=== PATIENT | female | born 1970 | race Caucasian/White ===

== ENCOUNTER 2017-08-27 18:00 | Inpatient (IN) | payer MEDICAID ==
[~2017-08-27] VITALS: Ht 157.5 cm; Wt 44.8 kg
--- NOTE | ~2017-08-27 | HEMODYNAMI ---
PATIENT:ANGELY VAZQUEZ MEDICAL RECORD: [id number] : 68 LOCATION:D. D.2107 ADMISSION DATE: 08/27/17 Generatedon:08/28/20179:58 Patient name: ANGELY VAZQUEZ Patient #: [id number] SSN: DO B: 1970 Date of study: 08/28/2017 Page: Of Hemodynamic Procedure Report Patient Data Patient Demographics Procedure consent was obtained First Name: ANGELY Gender: Female Last Name: TAYLOR : 1970 Patient #: [id number] Age: 47 year(s) Race: Additional ID: [id number] Contact details Address: [address] [place] [address] State: [place] City: [place] Zip code: [address] Past Medical History Allergies Allergen Reaction Date Comments Reported Penicillins 08/28/2017 Admission Admission Data Admission Date: 08/27/2017 Admission Time: 18:00 Room #: D.2107 Weight (lbs.): 170 Weight (kg.): 77.11 Procedure Procedure Types Cath Procedure Diagnostic Procedure LHC LHC w/Coronaries Procedure Description Procedure Date Procedure Date: 08/28/2017 Procedure Start Time: 9:44 Procedure End Time: 9:57 Procedure Staff Name Function Ryan Mcleod MD Performing Physician Aysha Bledsoe RN Nurse Clemente Apodaca RT Monitor Maryam eBltrán RT Scrub Procedure Data Cath Procedure Fluoroscopy Diagnostic fluoroscopy Total fluoroscopy Time: 0.9 time: 0.9 min min Diagnostic fluoroscopy Total fluoroscopy dose: dose: 77.99 mGy 77.99 mGy Contrast Material Contrast Material Type Amount (ml) Isovue 300 55 Entry Location Entry Primary Successful Side Size Upsize Upsize Entry Closure Succes sful Closure Location (Fr) 1 (Fr) 2 (Fr) Remarks Device Remarks Femoral Right 5 Fr Exoseal artery Estimated blood loss: 10 ml Diagnostic catheters Device Type Used For End Catheter Placement MULTIPACK JL 4.0 5Fr Procedure catheter MULTIPACK 3DRC 5Fr Procedure catheter MULTIPACK Pigtail 5 Fr Procedure catheter Procedure Medications Medication Administration Route Dosage Oxygen NC 2 l/min Lidocaine 2% added to field 20 Heparin Flush Bag added to field 2 bags (1000units/500ml NS) 0.9% NaCl I.V. 100 ml/hr Versed I.V. 1 mg Fentanyl I.V. 50 mcg Versed I.V. 1 mg Fentanyl I.V. 50 mcg Hemodynamics Rest Heart Rate: 90 (bpm) Pressure Samples Time Site Value (mmHg) Purpose Heart Use Rate(bpm) 9:45 LV 108/16,27 Snapshot 91 9:49 LV 114/-6,18 Snapshot 89 Gradients Valve Time Site Site Mean SEP/DFP Peak To Heart Use 1 2 (mmHg) (sec/min) Peak Rate (mmHg) (bpm) Aortic 9:50 LV AO 90 Snapshots Pre Cath Intra NCS Post Cath Vital Signs Time Heart Resp SPO2 etCO2 NIBP Rhythm Pain Sedation Rate (ipm) (%) (mmHg) (mmHg) Status Level (bpm) 9:10:49 88 22 99 27.6 124/73(92) NSR 0 (11) 10(A) , No pain 9:15:12 91 22 99 32.1 119/72(93) NSR 0 (11) 10(A) , No pain 9:19:31 92 19 99 21.6 119/68(88) NSR 0 (11) 10(A) , No pain 9:23:52 92 16 99 20.9 115/67(82) NSR 0 (11) 10(A) , No pain 9:28:10 89 17 99 23.9 106/69(86) NSR 0 (11) 10(A) , No pain 9:32:30 92 19 99 26.1 108/63(86) NSR 0 (11) 10(A) , No pain 9:36:50 88 17 97 29.9 101/66(74) NSR 0 (11) 10(A) , No pain 9:41:10 90 18 95 22.7 112/61(80) NSR 0 (11) 10(A) , No pain 9:45:32 91 15 97 29.1 110/65(81) NSR 0 (11) 9(A) , No pain 9:49:55 92 17 97 29.8 112/61(75) NSR 0 (11) 9(A) , No pain 9:53:13 91 15 97 19.4 105/61(80) NSR 0 (11) 10(A) , No pain 9:57:25 91 19 97 22.4 107/71(86) NSR 0 (11) 10(A) , No pain Medications Time Medication Route Dose Verified Delivered Reason Notes Effec tiveness by by 9:18:30 Oxygen NC 2 Ryan Buffie used for l/min Albion Bledsoe rotary engraver 9:18:37 Lidocaine 2% added 20ml Ryan Ryan for local to vial [facility] anesthetic field MD PALACIOS 9:18:43 Heparin Flush added 2 Ryan Ryan used for Bag to bags [facility] procedure (1000units/500ml field MD PALACIOS NS) 9:18:54 0.9% NaCl I.V. 100 Ryan Buffie Per ml/hr Albion Bledsoe RN physician 9:41:53 Versed I.V. 1 mg Ryan Buffie for Shani Bledsoe RN sedation 9:42:00 Fentanyl I.V. 50 Ryan Buffie for mcg Albion Bledsoe RN sedation 9:47:45 Versed I.V. 1 mg Ryan Buffie for Albion Bledsoe RN sedation 9:47:51 Fentanyl I.V. 50 Ryan Buffie for mcg [facility] RN sedation Procedure Log Time Note 8:54:59 Clemente Apodaca RT(R) (CV) sent for patient. Start room use. 8:55:00 Time tracking: Regular hours (M-F 7:00 - 5:00) 8:55:05 Plan of Care:Hemodynamics will remain stable., Cardiac rhythm will remain stable., Comfort level will be maintained., Respiratory function will remain adequate., Patient/ family verbilizes understanding of procedure., Procedure tolerated without complication., Recovers from procedure without complications.. 9:09:28 Patient received from PCU to CCL 3 Alert and oriented. Tansferred to table in Supine position. 9:09:29 Warm blankets applied, and claudette hugger turned on for patient comfort. 9:09:29 Correct patient and procedure confirmed by team. 9:09:30 Signed procedure consent form obtained from patient. 9::31 ECG and BP/O2 sat monitors applied to patient. 9:09:31 Vital chart was started 9:09:32 Full Disclosure recording started 9:10:54 Baseline sample Acquired. 9:10:58 Rhythm: sinus rhythm 9:13:12 H&P Date Dictated: 08/27/2017 ER History on chart.. 9:13:14 Pre-procedure instructions explained to patient. 9:13:15 Pre-op teaching completed and patient verbalized understanding. 9:13:18 Family in patients room. 9:13:20 Patient NPO since Midnight. 9:13:26 Patient allergic to Penicillins 9:13:30 Is the patient allergic to Iodine/contrast media? No. 9:13:35 Is patient on blood thinner?Yes 9:13:39 ACC The patient was administered the following blood thiners within the last 24 hours: ACCAspirin, ACCPlavix 9:13:43 Patient diabetic? No. 9:14:14 Patient not . Patient has had tubal. 9:14:26 ----Pre-sedation anethsthesia assessment.---- 9:14:36 Previous problem with sedation/anesthesia? No ? 9:14:38 Snore? Yes 9:14:42 Sleep apnea? No 9:14:44 Deviated septum? No 9:14:45 Opens mouth fully? Yes 9:14:46 Sticks out tongue? Yes 9:14:55 Airway obstruction? No ASTHMA 9:15:03 Dentures? No ? 9:15:16 Pre procedure: right posterior tibial pulse 1+ Palpable, but thready & weak; easily obliterated 9:15:19 Patient pain scale 0/10 ?. 9:15:35 IV patent on arrival in left hand with 0.9% NaCl at KVO. 9:15:44 Right groin area was prepped with chlora-prep and draped in sterile fashion 9:15:53 Modified Antony's test Ulnar > 7 seconds. 9:15:56 Alarms reviewed by R. N. 9:15:57 Sharps counted by scrub and verified by R.N. 9:16:15 Use device set Femoral Dx 9:16:16 ACIST Syringe (13461) opened to sterile field. 9:16:17 Bag Decanter (2002S) opened to sterile field. 9:16:18 Medline Cath Pack ([id number]) opened to sterile field. 9:16:19 DIAGNOSTIC WIRE .035 260cm J wire (323864) opened to sterile field. 9:16:21 ACIST Hand Control (91914) opened to sterile field. 9:16:22 ACIST Manifold (64908) opened to sterile field. 9:16:23 DIAGNOSTIC Multipack 5Fr catheter set (PR0213) opened to sterile field. 9:16:27 SHEATH Prelude 5Fr 0.035 ([id number]-8O-28-035) opened to sterile field. 9:18:30 Oxygen 2 l/min NC was administered by Aysha Bledsoe RN; used for procedure; 9:18:37 Lidocaine 2% 20ml vial added to field was administered by Ryan Mcleod MD; for local anesthetic; 9:18:43 Heparin Flush Bag (1000units/500ml NS) 2 bags added to field was administered by Ryan Mcleod MD; used for procedure; 9:18:54 0.9% NaCl 100 ml/hr I.V. was administered by Aysha Bledsoe RN; Per physician; 9:21:20 Patient Weight : 170 lbs 9:21:28 Zero performed for pressure channel P1 9:27:[address] LANCE 9:40:42 Physician arrived 9:40:42 --------ALL STOP TIME OUT------ 9:40:43 Final Timeout: patient, procedure, and site verified with staff and physician. All members of the team are in agreement. 9:40:45 Right groin site verified by team. 9:40:49 Physical assessment completed. ASA score P 2 - A patient with mild systemic disease as per Ryan Mcleod MD. 9:40:54 Sedation plan: IV Moderate Sedation Medication:Versed, Fentanyl 9:41:53 Versed 1 mg I.V. was administered by Aysha Bledsoe RN; for sedation; 9:42:00 Fentanyl 50 mcg I.V. was administered by Aysha Bledsoe RN; for sedation; 9:44:22 Procedure started. 9:44:26 Local anesthetic to right femoral artery with Lidocaine 2% by Ryan Mcleod MD.INITIAL ACCESS ONLY 9:45:10 A 5 Fr sheath was inserted into the Right Femoral artery 9:45:31 A MULTIPACK JL 4.0 5Fr catheter was advanced over the wire and used for Procedure. 9:46:13 LCA angiography performed. 9:46:40 Catheter removed. 9:47:04 A MULTIPACK 3DRC 5Fr catheter was advanced over the wire and used for Procedure. 9:47:45 Versed 1 mg I.V. was administered by Aysha Bledsoe RN; for sedation; 9:47:50 RCA angiography performed. 9:47:51 Fentanyl 50 mcg I.V. was administered by Aysha Bledsoe RN; for sedation; 9:47:55 Catheter removed. 9:48:12 A MULTIPACK Pigtail 5 Fr catheter was advanced over the wire and used for Procedure. 9:49:24 LV hemodynamics recorded. 9:49:26 LV gram done using VILLALOBOS 9:49:31 EF : 50 % 9:50:01 Catheter removed. 9:50:07 EXOSEAL 5Fr (EX500) opened to sterile field. 9:50:13 Tegaderm 4 x 4 (1626W) opened to sterile field. 9:50:40 Sheath removed intact; hemostasis achieved with Exoseal to the Right Femoral artery. 9:50:43 Procedure ended.(Physican Out) 9:52:00 Fluoroscopy time 00.90 minutes. 9:52:12 Fluoroscopy dose: 77.99 mGy 9:52:12 Flurop Dose total: 77.99 9:52:20 Contrast amount:Isovue 300 55ml. 9:52:22 Sharps counted by scrub and verified by R.N. 9:53:40 Insertion/operative site no bleeding no hematoma. 9:53:47 Post-op/insertion site Right Femoral artery dressed using a 4 x 4 and Tegaderm. 9:53:52 Post right femoral artery:stable 9:54:45 Post Procedure Pulses reassessed and unchanged 9:54:50 Post-procedure physical assessment completed. ASA score P 2 - A patient with mild systemic disease as per Ryan Mcleod MD. 9:54:57 Post procedure rhythm: unchanged. 9:55:02 Estimated blood loss: 10 ml 9:57:09 Post procedure instruction explained to patient.Patient verbalizes understanding. 9:57:10 Patient needs reinforcement of post procedure teaching. 9:57:12 Procedure and supply charges have been captured, reviewed, submitted and are correct. 9:57:14 Vital chart was stopped 9:57:14 See physician's report for complete and final results. 9:57:22 Report given to PCU. 9:57:26 Patient transfered to PCU with Bed. 9:57:29 Procedure ended. 9:57:29 Full Disclosure recording stopped 9:57:32 End room use (Document Last) Device Usage Item Name Manufacture Quantity Catalog Number Hospital Part Current M inimal Lot# / Charge Number Stock Stock Serial# Code ACIST Syringe Acist 1 48551 [id number] 405030 538261 2 0 (90578) [employer] Bag Decanter Microtek 1 2001S 971574 85871 331905 5 (2001S) Medical Inc. Medline Cath Cardinal 1 [id number] 528694 14443 931559 5 Pack Health ([id number]) DIAGNOSTIC WIRE St Juanito 1 071572 859003 398633 630768 3 0 .035 260cm J wire (291452) ACIST Hand Acist 1 35347 673604 176256 242681 5 Control (89195) [employer] ACIST Manifold Acist 1 74711 205666 520998 304329 5 (79352) [employer] Inc DIAGNOSTIC Cardinal 1 HU4426 530020 21596 187817 3 0 Multipack 5Fr Health catheter set (OT6952) SHEATH Prelude Merit 1 ULB-2U-08-035 111293 442205 083457 5 5Fr 0.035 Medical ([id number]-6K-53-035) MULTIPACK JL Cardinal 1 [id number] 5 4.0 5Fr Health catheter MULTIPACK 3DRC Cardinal 1 110229 5 5Fr catheter Health MULTIPACK Cardinal 1 861775 5 Pigtail 5 Fr Health catheter EXOSEAL 5Fr Cardinal 1 EX500 524596 146523 190923 1 0 (EX500) Health Tegaderm 4 x 4 3M 1 1626W 509310 055382 102700 5 (1626W) Signature Audit [place] Stage Time Signature Unsigned Intra-Procedure 08/28/2017 Clemente Apodaca 9:58:07 AM RT(R) (CV) Signatures Monitor : Clemente Apodaca RT Signature : Date : Time : [facility] [address] [place] [address]
--- NOTE | ~2017-08-27 | DS ---
PATIENT:ANGELY VAZQUEZ :68 MEDICAL RECORD: [id number] DISCHARGE SUMMARY ADMISSION DATE: 08/27/17 DISCHARGE DATE: 08/28/17 DATE OF ADMISSION: 08/27/2017 DATE OF DISCHARGE: 08/28/2017 PROBLEM LIST: 1. Type 2 MT secondary to demand ischemia. 2. SVT. HISTORY AND HOSPITAL COURSE: A 47-year-old female with history of cardiac arrhythmia and SVT, had atypical SVT accompanied by chest tightness. She was found to have elevated enzymes. Due to symptomatology and elevated enzymes, transferred here from [place]. She underwent diagnostic angiography which showed no obstructive coronary disease. She was switched from calcium channel renee to beta blockade for better control of arrhythmias. ACTIVITY: As tolerated. DIET: AHA diet. No caffeine. TRANSINT:[id number] Voice Confirmation ID: [id number] DOCUMENT ID: [id number] ESPERANZA MORGAN MD at 1114 CC: [id number] DICTATION DATE: 09/17/17 1348 FEEDER/FOLDER: 09/17/17 1530 DIS IN 08/28/17 [id number] [place] [address]
--- NOTE | ~2017-08-27 | HP ---
PATIENT: ANGELY VAZQUEZ MEDICAL RECORD: [id number] ACCOUNT: [id number] LOCATION:[address] : 68 ADMISSION DATE: 08/27/17 HISTORY AND PHYSICAL EXAMINATION HISTORY OF PRESENT ILLNESS: A 47-year-old female with a history of SVT, longstanding. Really quite well controled on Cardizem. Had episode last night more severe than usual of breathlessness, lightheadedness, and angina. Found to have positive enzymes consistent with NSTEMI. She was transferred here for further evaluation. PAST MEDICAL HISTORY: Includes; 1. History of hypertension. 2. SVT. ALLERGIES: PENICILLIN. SOCIAL HISTORY: Nonsmoker, nondrinker. Works. She is able to take care of all her ADLs. No set exercise program. REVIEW OF SYSTEMS: The patient reports easy bruising but reports no swollen glands. The patient reports no fever, no night sweats, no significant weight gain, no significant weight loss. No significant exercise tolerance. The patient reports no dry eyes, no irritation, no vision change. Patient reports no difficulty hearing and no ear pain. Patient reports no frequent nose bleeds or nose and sinus problems. Patient reports on arm pain on exertion. No shortness of breath while lying down. No history of heart murmur. Patient reports no cough, no wheezing or coughing up blood. Patient reports no abdominal pain, no vomiting. Normal appetite. No diarrhea and not vomiting blood. No nausea and no constipation. Patient reports no incontinence. No difficulty urinating. No hematuria. No increased frequency. Patient reports no muscle aches. No weakness, no arthralgias, no back pain. No swelling of the extremities. Patient reports no abnormal mole, no jaundice, no rashes. Reports no loss of consciousness. No weakness and no numbness. No seizures, dizziness, or headaches. The patient reports no depression, no sleep disturbance, feeling safe in a relationship and no alcohol abuse. Patient reports on fatigue. Reports no runny nose or sinus pressure. No itching, no hives, and no frequent sneezing. PHYSICAL EXAMINATION: GENERAL: Pleasant female, in no acute distress. VITAL SIGNS: Blood pressure 105/66, pulse 94 and regular. HEENT: Normocephalic, atraumatic. NECK: No JVD or bruit. HEART: Regular. A II/IV systolic ejection murmur. LUNGS: Good air excursion. ABDOMEN: Soft, nontender. EXTREMITIES: Pulses 2+. There is no edema. IMPRESSION: SVT accompanied by NSTEMI. At this point, a diagnostic angiography. Intervention based on the above. TRANSINT:[id number] Voice Confirmation ID: [id number] DOCUMENT ID: [id number] HISTORY AND PHYSICAL [id number] ANGELY VAZQUEZ,ESPERANZA Koch MD at 0958 CC: [id number] DICTATION DATE: 08/28/17 0752 REMEDIATION TECHNICIAN: 08/28/17 0921 ADM IN [facility] [address] [id number]
--- NOTE | ~2017-08-27 | OP ---
PATIENT NAME: ANGELY VAZQUEZ MEDICAL RECORD: [id number] :68 LOCATION:D.M2 D.2107 ADMISSION DATE:08/27/17 SURGEON: ESPERANZA MORGAN MD DATE OF OPERATION: 08/28/2017 PROCEDURE: Left heart catheterization, selective coronary angiography, right femoral artery approach. CATHETERS: A 5-Croatian sheath, 5/4 left and right Tarik, 5/4 pig. The procedure was well tolerated. The patient returned to [facility]. Sheath removed. ExoSeal device placed. FINDINGS: Left ventriculography in the 30-degree VILLALOBOS view, normal wall motion, normal systolic function. CORONARY ANATOMY: LEFT MAIN: Left main is free of disease. LAD: Free of disease in the diagonal system. CIRCUMFLEX: Free of disease in the marginal system. RIGHT CORONARY ARTERY: Dominant artery, gives rise to PDA, free of disease. IMPRESSION: Normal systolic function. Normal coronary anatomy. We suspect cardiac enzyme elevation secondary to supraventricular tachycardia, underlying bronchitis. Begin beta blockade. See her back in follow up in 4-6 weeks. As above. TRANSINT:[id number] Voice Confirmation ID: [id number] DOCUMENT ID: [id number] ESPERANZA MORGAN MD at 0826 CC: [id number] DICTATION DATE: 08/28/17 1001 RELIEF MANAGER: 08/28/17 1156 DIS IN 08/28/17 [facility] [address] [place] [address]
[2017-08-27 18:25] VITALS: BP 127/67; Ht 157.5 cm; Wt 44.8 kg
[2017-08-27 20:09] LABS: BASOPHILS 0.4 % (0-2); EOSINOPHILS 1.5 % (0-7); HEMATOCRIT 39.6 % (36.0-48.0); HEMOGLOBIN 13.5 g/dL (12-16); IMMATURE GRANULOCYTES 0.4 % (0-5); LYMPHOCYTES 19.3 % (15-50); MCH 30.9 pg (26.0-34.0); MCHC 34.1 g/dL (31.0-37.0); MCV 90.6 fL (80.0-100.0); MEAN PLATELET VOLUME 10.1 fL (7.4-10.4); MONOCYTES 5.5 % (2-11); NEUTROPHILS 72.9 % (40-80); PLATELET COUNT 219 10x3/uL (130-400); RBC 4.37 10x6/uL (4.00-5.40); RDW 12.7 % (11.5-14.5); WBC 11.2 10x3/uL (4.8-10.8)
[2017-08-27 20:36] LABS: ALBUMIN 3.3 g/dL (3.4-5.0); ALKALINE PHOSPHATASE 49 U/L (46-116); ALT (SGPT) 20 U/L (10-68); BILIRUBIN - TOTAL 0.74 mg/dL (0.2-1.3); CALC OSMOLALITY 279 mosm/kg (275-300); CALCIUM 8.9 mg/dL (8.5-10.1); CARBON DIOXIDE 28.8 mmol/L (21.0-32.0); CHLORIDE - SERUM 103 mmol/L (98-107); CKMB 1.6 U/L (0.0-3.6); CREATINE KINASE 34 UL (21-215); CREATININE - SERUM 1.1 mg/dL (0.6-1.3); GLUCOSE 109 mg/dL (74-106); POTASSIUM - SERUM 3.5 mmol/L (3.5-5.1); PROTEIN - SERUM 6.8 g/dL (6.4-8.2); SODIUM 140 mmol/L (136-145); UREA NITROGEN 13 mg/dL (7-18); eGFR NON AFRICAN AMERICAN 56 mL/min (90-120)
[2017-08-27 20:38] VITALS: BP 143/65
[2017-08-27 20:42] LABS: TROPONIN-I 0.291 ng/mL (0.000-0.060)
[2017-08-27 21:00] LABS: INR 1.02 (0.85-1.17)
[2017-08-28 00:05] VITALS: BP 91/43
[2017-08-28 04:39] VITALS: BP 105/66
[2017-08-28 07:52] VITALS: BP 110/55
[2017-08-28 08:02] VITALS: BP 110/55
[2017-08-28 08:41] LABS: BASOPHILS 0.2 % (0-2); EOSINOPHILS 3.6 % (0-7); HEMATOCRIT 38.9 % (36.0-48.0); HEMOGLOBIN 13.2 g/dL (12-16); IMMATURE GRANULOCYTES 0.1 % (0-5); MCH 30.8 pg (26.0-34.0); MCHC 33.9 g/dL (31.0-37.0); MCV 90.9 fL (80.0-100.0); MEAN PLATELET VOLUME 10.4 fL (7.4-10.4); MONOCYTES 7.3 % (2-11); NEUTROPHILS 70.8 % (40-80); PLATELET COUNT 218 10x3/uL (130-400); RBC 4.28 10x6/uL (4.00-5.40); RDW 12.6 % (11.5-14.5)
[2017-08-28 08:43] LABS: WBC 8.3 10x3/uL (4.8-10.8)
[2017-08-28 08:50] LABS: CALC OSMOLALITY 274 mosm/kg (275-300); CALCIUM 8.8 mg/dL (8.5-10.1); CHLORIDE - SERUM 104 mmol/L (98-107); GLUCOSE 104 mg/dL (74-106); POTASSIUM - SERUM 3.7 mmol/L (3.5-5.1); SODIUM 138 mmol/L (136-145); UREA NITROGEN 11 mg/dL (7-18); eGFR NON AFRICAN AMERICAN 81 mL/min (90-120)
[2017-08-28 08:52] LABS: CREATININE - SERUM 0.8 mg/dL (0.6-1.3)
[2017-08-28 11:11] VITALS: BP 115/65
[2017-08-28] MEDS ORDERED: BREO ELLIPTA 11 EACH INH (12:20)
[2017-08-28] MEDS ORDERED: CARDIZEM30 MG PO (12:20)
[2017-08-28] MEDS ORDERED: LOPRESSOR25 MG PO (14:26)
== END 2017-08-28 14:57 | disposition home or self-care (01) | DRG 287 ==
LOC: D.M2 18:00
PROVIDERS: Internal Medicine Interventional Cardiology
PROC: B2151ZZ Fluoroscopy of Left Heart using Low Osmolar Contrast (ICD-10-PCS; 2017-08-28)
PROC: 4A023N7 Measurement of Cardiac Sampling and Pressure, Left Heart, Percutaneous Approach (ICD-10-PCS; 2017-08-28)
PROC: B2111ZZ Fluoroscopy of Multiple Coronary Arteries using Low Osmolar Contrast (ICD-10-PCS; principal; 2017-08-28 12:30)
DX: I47.1 Supraventricular tachycardia (principal); I10 Essential (primary) hypertension; J40 Bronchitis, not specified as acute or chronic